=== PATIENT | female | born 2000 | race Caucasian/White ===

== ENCOUNTER 2020-07-12 14:33 | Outpatient (CLI) | payer OTHER, SELFPAY ==
[2020-07-14 01:53] LABS: SARS-CoV-2 RNA PCR Negative
== END 2020-07-12 14:34 | disposition home or self-care (01) ==
LOC: CHSLAB 14:37
PROVIDERS: PCP Family Medicine; Visit Provider Family Medicine
DX: Z20.828 Contact with and (suspected) exposure to other viral communicable diseases (principal)
CPT/HCPCS: 87635; C9803; U0003

== ENCOUNTER 2020-07-24 09:41 | Outpatient (CLI) | payer OTHER, SELFPAY ==
[2020-07-25 14:24] LABS: SARS-CoV-2 RNA PCR Negative
== END 2020-07-24 09:42 | disposition home or self-care (01) ==
LOC: CHSLAB 09:42
PROVIDERS: PCP Family Medicine; Visit Provider Family Medicine
DX: Z20.828 Contact with and (suspected) exposure to other viral communicable diseases (principal)
CPT/HCPCS: 87635; C9803; U0003

== ENCOUNTER 2020-10-22 11:54 | Outpatient (CLI) | payer OTHER, SELFPAY ==
[2020-10-22 14:09] LABS: SARS-CoV-2 Ag Positive (Negative)
== END 2020-10-22 11:55 | disposition home or self-care (01) ==
LOC: CHSLAB 11:55
PROVIDERS: PCP Family Medicine; Visit Provider Family Medicine
DX: U07.1 COVID-19 (principal)
CPT/HCPCS: 87426